=== PATIENT | female | born 1975 | race Caucasian/White ===

== ENCOUNTER 2021-10-12 19:10 | Emergency (ER) | payer OTHER ==
[2021-10-12 19:30] VITALS: O2SAT 100
--- NOTE | 2021-10-12 19:42 | ERPHSYRPT ---
- History of Present Illness Time Seen by Provider: 10/12/21 19:16 Source: patient Exam Limitations: no limitations Patient Subjective Stated Complaint: Cough Triage Nursing Assessment: Patient brought into ED via EMS and transferred self to bed. Patient A+O X3. Patient's skin pink, warm and dry. Patient complains of cough, fever, SOB, bodyaches, headaches and diarrhea for one week. Patient was seen by PCP yesterday and prescribed a Z [place]. Lungs clear a/p z[place]ira. Patient complains of productive intermittent cough with thick yellow/[place]ort[place] sputum. P atient complains of body aches. Physician History: 46 years old with history of tobacco abuse presented in the ER with chief complaint of cough gradually worsening for the last 2 to 3 days productive of yellow-green sputum with associated fever and chills. She is having coughing bouts and complaining of bilateral lower chest pain with coughing. She was seen outpatient and currently on Z-[place] which help with the fever but still having cough and some shortness of breath with generalized weakness fatigue, body aches, sinus congestion and headache. Unvaccinated against COVID-19. Timing/Duration: day(s) (2), gradual onset, worse Cough Quality/Degree: moderate, productive cough, sputum Possible Cause: unknown cause Modifying Factors: Worsens With: coughing Associated Symptoms: fever, chills, chest pain/soreness, cough, headache, muscle aches, nasal congestion, shortness of breath, sore throat Allergies/Adverse Reactions: chlorpheniramine [From Actifed Cold-Allergy] Allergy (Verified 10/12/21 19:17) phenylephrine [From Actifed Cold-Allergy] Allergy (Verified 10/12/21 19:17) pseudoephedrine [From Actifed Cold-Allergy] Allergy (Verified 10/12/21 19:17) triprolidine [From Actifed Cold-Allergy] Allergy (Verified 10/12/21 19:17) Immunizations Up to Date: Yes Travel Risk - International Travel Have you traveled outside of the country in past 3 weeks: No - Coronavirus Screening Symptoms: Fever, Cough: New Onset, Shortness of Breath, Vomiting/Diarrhea, Headaches/Body Aches/Fatigue Close contact with a COVID-19 positive Pt in past 14-21 Days: No - Vaccine Status Have you recieved a Covid-19 vaccination: No - Review of Systems Constitutional: Fever, Fatigue, Weakness Eyes: No Symptoms Ears, Nose, & Throat: Nose Congestion, Throat Swelling Respiratory: Cough, Dyspnea Cardiac: Chest Pain Abdominal/Gastrointestinal: No Symptoms Genitourinary Symptoms: No Symptoms Musculoskeletal: Myalgias Skin: No Symptoms Neurological: Headache Psychological: No Symptoms Endocrine: No Symptoms Hematologic/Lymphatic: No Symptoms Immunological/Allergic: No Symptoms - Past Medical History Pertinent Past Medical History: Yes Neurological History: No Pertinent History ENT History: No Pertinent History Cardiac History: No Pertinent History Respiratory History: Asthma Endocrine Medical History: No Pertinent History Musculoskeletal History: No Pertinent History GI Medical History: No Pertinent History History: No Pertinent History Psycho-Social History: No Pertinent History Female Reproductive Disorders: No Pertinent History - Past Surgical History Past Surgical History: Yes Neuro Surgical History: No Pertinent History Cardiac: No Pertinent History Respiratory: No Pertinent History Gastrointestinal: Cholecystectomy Genitourinary: No Pertinent History Musculoskeletal: No Pertinent History Female Surgical History: Section Other Surgical History: lap band - Social History Smoking Status: Current every day smoker How long have you smoked: years Exposure to second hand smoke: No Drug Use: none Patient Lives Alone: No - Female History Hx Now: No - Nursing Vital Signs Nursing Vital Signs: Initial Vital Signs Temperature 98.1 F 10/12/21 19:19 Pulse Rate 91 H 10/12/21 19:19 Respiratory Rate 18 10/12/21 19:19 Blood Pressure 114/62 10/12/21 19:19 O2 Sat by Pulse Oximetry 100 10/12/21 19:19 Pain Scale Pain Intensity 0 - Physical Exam General Appearance: no apparent distress, alert Eye Exam: PERRL/EOMI, eyes nml inspection Ears, Nose, Throat Exam: moist mucous membranes, pharyngeal erythema Neck Exam: normal inspection Respiratory Exam: normal breath sounds, lungs clear Cardiovascular Exam: regular rate/rhythm, normal heart sounds Gastrointestinal/Abdomen Exam: soft, No tenderness Back Exam: normal inspection, normal range of motion Extremity Exam: normal inspection, normal range of motion Neurologic Exam: alert, oriented x 3, cooperative Skin Exam: normal color SpO2 Interpretation: normal SpO2: 100 O2 Delivery: Room Air Ordered Tests: Active Orders 24 hr Category Date Time Status CHEST 1 VIEW (PORTABLE) Stat Exams 10/12/21 19:38 Taken BLOOD CULTURE Stat Lab 10/12/21 20:45 Received CBC W DIFF Stat Lab 10/12/21 20:45 Completed CMP Stat Lab 10/12/21 20:45 Completed INFLUENZA A+B CANDE Stat Lab 10/12/21 20:45 Completed Medication Summary Discontinued Medications Generic Name Dose Route Start Last Admin Trade Name Cesar PRN Reason Stop Dose Admin Acetaminophen 975 mg 10/12/21 19:39 10/12/21 20:00 Acetaminophen 325 Mg Tablet PO 10/12/21 19:40 975 mg STAT STA Administration Acetaminophen Confirm 10/12/21 19:57 Acetaminophen 325 Mg Tablet Administered 10/12/21 19:58 Dose 975 mg .ROUTE .[place] Lab/Rad Data: Laboratory Result Diagrams 10/12/21 20:45 10/12/21 20:45 Laboratory Results 10/12/21 10/12/21 10/12/21 Range/Units 20:45 20:45 20:45 WBC 8.2 (4.0-10.5) K/mm3 RBC 4.18 (4.1-5.4) M/mm3 Hgb 12.0 (12.0-16.0) gm/dl Hct 37.4 (35-47) % MCV 89.5 (78-100) fl MCH 28.7 (26-32) pg MCHC 32.1 (32-36) g/dl RDW 12.8 (11.5-14.0) % Plt Count 312 (150-450) K/mm3 MPV 9.4 (7.5-11.0) fl Gran % 64.7 (36.0-66.0) % Eos # (Auto) 0.12 (0-0.5) Absolute Lymphs (auto) 2.01 (1.0-4.6) Absolute Monos (auto) 0.76 (0.0-1.3) Lymphocytes % 24.4 (24.0-44.0) % Monocytes % 9.2 (0.0-12.0) % Eosinophils % 1.5 (0.00-5.0) % Basophils % 0.2 (0.0-0.4) % Absolute Granulocytes 5.32 (1.4-6.9) Basophils # 0.02 (0-0.4) Sodium 138 (137-145) mmol/L Potassium 3.8 (3.5-5.1) mmol/L Chloride 106 (98-107) mmol/L Carbon Dioxide 25 (22-30) mmol/L Anion Gap 11.2 (5-15) MEQ/L BUN 8 (7-17) mg/dL Creatinine 0.72 (0.52-1.04) mg/dL Estimated GFR > 60.0 ML/MIN Glucose 91 (74-106) mg/dL Calcium 8.3 L (8.4-10.2) mg/dL Total Bilirubin 0.20 (0.2-1.3) mg/dL AST 17 (14-36) U/L ALT 13 (0-35) U/L Alkaline Phosphatase 75 (38-126) U/L Serum Total Protein 6.7 (6.3-8.2) g/dL Albumin 3.7 (3.5-5.0) g/dL Influenza Type A Ag NEGATIVE (NEGATIVE) Influenza Type B Ag NEGATIVE (NEGATIVE) - Progress Progress: re-examined Air Movement: good Progress Note: 10/12/21 21:59 46 years old is evaluated for worsening cough and fever with some shortness of breath. Patient has minimal wheezing, given steroids and Tylenol, on reevaluation feeling better. Chest x-ray reviewed by me did not reveal any obvious infiltrative process. Has normal white count, grossly unremarkable chemistries. This could be viral bronchitis and will give a short course of steroids along with inhaler to use. Since she is already on Zithromax, recommended completing course and outpatient follow-up. She is maintaining oxygen saturation around 99% on room air and is not in any distress, do not think needs any other work-up and seems to be infectious etiology probably viral. Discussed signs symptoms of worsening needing return to ER which she seems understanding. Stable for discharge. 10/12/21 22:00 Antibiotics given: No Counseled pt/family regarding: lab results, diagnosis, need for follow-up, rad results, smoking cessation - Departure Departure Disposition: Home Clinical Impression: Acute bronchitis Condition: Stable Critical Care Time: No Referrals: DOCTOR,NO FAMILY [Primary Care Provider] - Follow up/PCP as directed MICHELINE MCGUIRE [ACTIVE STAFF] - Follow up/PCP as directed (In 2 days for reevaluation) Instructions: Cough, Adult (DC) Additional Instructions: Finish course of antibiotics. Use inhaler as needed. Follow-up with primary care for reevaluation. Return to ER for worsening cough/shortness of breath, persistent high-grade fever chills etc. Prescriptions: Prednisone 20 mg [Deltasone 20 mg] 60 mg PO DAILY 5 Days #15 tablet Albuterol 8 gm Mdi Hfa [Ventolin Hfa MDI] 8 gm IH Q4H #1 inh
[2021-10-12] MEDS ORDERED: TYLENOL 325 MG ONE (19:57)
[2021-10-12] MEDS: TYLENOL 325 MG PO STA (20:00)
[2021-10-12 20:55] LABS: Absolute Neutrophil Ct (ANC) 5.32 (1.4-6.9); BASOPHIL % 0.2 % (0.0-0.4); Basophil (Absolute #) 0.02 (0-0.4); Eosinophil % 1.5 % (0.00-5.0); Eosinophil (Absolute #) 0.12 (0-0.5); Hematocrit 37.4 % (35-47); Lymphocyte (Absolute #) 2.01 (1.0-4.6); Lymphocytes % 24.4 % (24.0-44.0); Mean Cell Volume 89.5 fl (78-100); Mean Corpuscular Hemoglobin 28.7 pg (26-32); Mean Corpuscular Hgb Concent. 32.1 g/dl (32-36); Mean Platelet Volume 9.4 fl (7.5-11.0); Monocyte (Absolute #) 0.76 (0.0-1.3); Monocytes % 9.2 % (0.0-12.0); Neutrophil % 64.7 % (36.0-66.0); Platelet Count 312 K/mm3 (150-450); Red Blood Count 4.18 M/mm3 (4.1-5.4); Red Cell Distribution Width 12.8 % (11.5-14.0); White Blood Count 8.2 K/mm3 (4.0-10.5)
[2021-10-12 21:14] LABS: ALBUMIN 3.7 g/dL (3.5-5.0); ALKALINE PHOSPHATASE 75 U/L (38-126); ANION GAP 11.2 MEQ/L (5-15); BLOOD UREA NITROGEN 8 mg/dL (7-17); CHLORIDE 106 mmol/L (98-107); Calcium 8.3 mg/dL (8.4-10.2); Carbon Dioxide 25 mmol/L (22-30); Creatinine 1 0.72 mg/dL (0.52-1.04); EST GLOMERULAR FILTRATION RATE > 60.0 ML/MIN; Glucose 91 mg/dL (74-106); Potassium 3.8 mmol/L (3.5-5.1); SGOT/AST 17 U/L (14-36); SGPT/ALT 13 U/L (0-35); SODIUM 138 mmol/L (137-145); Total Protein 6.7 g/dL (6.3-8.2)
[2021-10-12 21:23] LABS: INFLUENZA A NEGATIVE (NEGATIVE); INFLUENZA B NEGATIVE (NEGATIVE)
[2021-10-12] MEDS ORDERED: DELTASONE 20 MG ONE (22:02)
[2021-10-12] MEDS: DELTASONE 20 MG PO ONE (22:03)
[2021-10-12 22:05] VITALS: BP 125/64; PULSE 91
--- NOTE | 2021-10-13 08:59 | XRAY ---
Indication: Cough. Comparison: None Portable apical lordotic chest demonstrates normal heart and lungs. Bony thorax intact with mild degenerative changes throughout the spine.
== END 2021-10-12 22:22 | disposition home or self-care (01) ==
LOC: ED 19:10
DX: J20.9 Acute bronchitis, unspecified (principal); Z72.0 Tobacco use; R50.9 Fever, unspecified; R07.9 Chest pain, unspecified; Z79.52 Long term (current) use of systemic steroids
CPT/HCPCS: 36415; 71045; 80053; 85025; 87040; 87400; 99284; U0003; A9270-GY

== ENCOUNTER 2024-06-19 12:24 | Emergency (ER) | payer OTHER ==
[2024-06-19 12:57] VITALS: TEMP 98.1
--- NOTE | 2024-06-19 12:57 | ERPHSYRPT ---
- History of Present Illness Time Seen by Provider: 06/19/24 12:39 Source: patient Exam Limitations: no limitations Physician History: Left flank pain. 3 days. Patient diagnosed with UTI at outside hospital. Patient is here for a second opinion. No falls no trauma no fever. Patient does have some low blood pressures here. However she does have a history of of congestive heart failure. No active chest pain. Patient states that she was placed on antibiotic, does not remember which 1. We will follow-up in our records to see this. Patient otherwise asymptomatic, no shortness of breath, mentating well despite low blood pressure. Allergies/Adverse Reactions: chlorpheniramine [From Actifed Cold-Allergy] Allergy (Verified 06/19/24 12:48) Latex, Natural Rubber Allergy (Verified 06/19/24 12:48) phenylephrine [From Actifed Cold-Allergy] Allergy (Verified 06/19/24 12:48) pseudoephedrine [From Actifed Cold-Allergy] Allergy (Verified 06/19/24 12:48) triprolidine [From Actifed Cold-Allergy] Allergy (Verified 06/19/24 12:48) Home Medications: ALPRAZolam [Alprazolam] 0.5 mg PO DAILY PRN 06/19/24 [History] Apixaban [Eliquis] 5 mg PO BID 06/19/24 [History] Fluoxetine HCl 10 mg [Prozac 10 mg] 10 mg PO DAILY 06/19/24 [History] Nitrofurantoin Macro 100 mg [Macrobid 100MG Capsule] 100 mg PO BID 06/19/24 [History] OLANZapine [Olanzapine] 2.5 mg PO DAILY 06/19/24 [History] Sacubitril/Valsartan [Entresto 24 mg-26 mg Tablet] 1 tab PO BID 06/19/24 [History] Spironolactone 25 mg [Aldactone 25 MG] 25 mg PO DAILY 06/19/24 [History] Torsemide 20 mg [Demadex 20 mg] 20 mg PO TID 06/19/24 [History] carvediloL [Coreg] 25 mg PO BID 06/19/24 [History] - Past Medical History Pertinent Past Medical History: Yes Neurological History: No Pertinent History ENT History: No Pertinent History Cardiac History: No Pertinent History Respiratory History: Asthma Endocrine Medical History: No Pertinent History Musculoskeletal History: No Pertinent History GI Medical History: No Pertinent History History: No Pertinent History Psycho-Social History: No Pertinent History Female Reproductive Disorders: No Pertinent History - Past Surgical History Past Surgical History: Yes Neuro Surgical History: No Pertinent History Cardiac: No Pertinent History Respiratory: No Pertinent History Gastrointestinal: Cholecystectomy Genitourinary: No Pertinent History Musculoskeletal: No Pertinent History Female Surgical History: Section Other Surgical History: lap band - Female History Hx Now: No - Social History Smoking Status: Current every day smoker How long have you smoked: years Exposure to second hand smoke: No Drug Use: none Patient Lives Alone: No - Nursing Vital Signs Nursing Vital Signs: Initial Vital Signs Temperature 98.1 F 06/19/24 12:24 Pulse Rate 57 L 06/19/24 12:24 Respiratory Rate 15 06/19/24 12:24 Blood Pressure 96/65 06/19/24 12:24 O2 Sat by Pulse Oximetry 99 06/19/24 12:24 Pain Scale Pain Intensity 0 - Physical Exam Comments: 06/19/24 12:56 Review of Systems Constitutional: Negative for fever. HENT: Negative for congestion. Respiratory: Negative for shortness of breath. Cardiovascular: Negative for chest pain. Gastrointestinal: Negative for abdominal pain. Genitourinary: Negative for dysuria. Musculoskeletal: Negative for back pain. Skin: Negative for rash. Neurological: Negative for headaches. Psychiatric/Behavioral: Negative for behavioral problems. All other systems reviewed and are negative. Physical Exam Vitals signs and nursing note reviewed. Constitutional: Appearance: Patient is well-developed. HENT: Head: Normocephalic and atraumatic. Eyes: Conjunctiva/sclera: Conjunctivae normal. Neck: Musculoskeletal: Normal range of motion. Trachea: No tracheal deviation. Cardiovascular: Rate and Rhythm: Normal rate. Pulmonary: Effort: Pulmonary effort is normal. No respiratory distress. Abdominal: Palpations: Abdomen is soft. Left flank pain on palpation. Musculoskeletal: General: No deformity. Skin: General: Skin is warm and dry. Neurological/ Psychiatric: Mental Status: Mental status, behavior, interaction with environment is appropriate for patient's age and condition - Course Nursing assessment & vital signs reviewed: Yes EKG Interpreted by Me: Sinus Rhythm Ordered Tests: Active Orders 24 hr Category Date Time Status EKG-ER Only STAT Care 06/19/24 12:46 Active IV Insertion STAT Care 06/19/24 12:46 Active ABDOMEN AND PELVIS W&WO CONTRA [CT] Stat Exams 06/19/24 12:47 Completed CHEST 1 VIEW (PORTABLE) Stat Exams 06/19/24 12:46 Completed CBC W DIFF Stat Lab 06/19/24 13:15 Completed CMP Stat Lab 06/19/24 13:15 Completed LIPASE Stat Lab 06/19/24 13:15 Completed TROPONIN Q4H Lab 06/19/24 13:15 Completed TROPONIN Q4H Lab 06/19/24 17:00 Ordered TROPONIN Q4H Lab 06/19/24 21:00 Ordered UA W/RFX UR CULTURE Stat Lab 06/19/24 13:13 Completed Medication Summary Discontinued Medications Generic Name Dose Route Start Last Admin Trade Name Freq PRN Reason Stop Dose Admin Acetaminophen 975 mg 06/19/24 12:46 06/19/24 13:25 Acetaminophen 325 Mg Tablet PO 06/19/24 12:47 975 mg STAT ONE Administration Acetaminophen Confirm 06/19/24 13:23 Acetaminophen 325 Mg Tablet Administered 06/19/24 13:24 Dose 975 mg .ROUTE .STK-MED ONE Ketorolac Tromethamine 30 mg 06/19/24 12:46 06/19/24 13:26 Ketorolac Tromethamine 30 Mg/Ml Inj IV 06/19/24 12:47 30 mg STAT ONE Administration Ketorolac Tromethamine Confirm 06/19/24 13:23 Ketorolac Tromethamine 30 Mg/Ml Inj Administered 06/19/24 13:24 Dose 30 mg .ROUTE .STK-MED ONE Ondansetron HCl 4 mg 06/19/24 12:46 06/19/24 13:26 Ondansetron Hcl 4 Mg/2 Ml Vial IV 06/19/24 12:47 4 mg STAT ONE Administration Ondansetron HCl Confirm 06/19/24 13:23 Ondansetron Hcl 4 Mg/2 Ml Vial Administered 06/19/24 13:24 Dose 4 mg .ROUTE .STK-MED ONE Lab/Rad Data: Laboratory Result Diagrams 06/19/24 13:15 06/19/24 13:15 Laboratory Results 06/19/24 06/19/24 06/19/24 Range/Units 13:15 13:15 13:15 WBC 6.4 (3.98-10.04) x10^3/uL RBC 4.56 (3.93-5.22) x10^6/uL Hgb 12.9 (11.2-15.7) g/dL Hct 40.7 (34.1-44.9) % MCV 89.3 (79.4-94.8) fL MCH 28.3 (25.6-32.2) pg MCHC 31.7 L (32.2-35.5) g/dL RDW 14.4 (11.7-14.4) % Plt Count 298 (182-369) x10^3/uL MPV 9.7 (9.4-12.3) fL Gran % 69.5 (34.0-71.1) % Immature Gran % (Auto) 0.5 H (0.001-0.429) % Nucleat RBC Rel Count 0.0 (0.00-0.2) % Eos # (Auto) 0.15 (0.04-0.36) x10^3/uL Immature Gran # (Auto) 0.03 (0.001-0.031) x10^3u/L Absolute Lymphs (auto) 1.15 L (1.18-3.74) x10^3/uL Absolute Monos (auto) 0.57 (0.24-0.86) x10^3/uL Absolute Nucleated RBC 0.00 (0.00-0.012) x10^3u/L Lymphocytes % 18.0 L (19.3-51.7) % Monocytes % 8.9 (4.7-12.5) % Eosinophils % 2.3 (0.7-5.8) % Basophils % 0.8 (0.1-1.2) % Absolute Granulocytes 4.44 (1.56-6.13) x10^3/uL Basophils # 0.05 (0.01-0.08) x10^3/uL Sodium 136 (135-145) mmol/L Potassium 4.6 (3.5-5.1) mmol/L Chloride 102 (98-107) mmol/L Carbon Dioxide 28 (22-30) mmol/L Anion Gap 10.2 (5-15) MEQ/L BUN 24 H (7-17) mg/dL Creatinine 1.16 H (0.52-1.04) mg/dL Estimated GFR 58.5 ML/MIN Glucose 109 H (74-106) mg/dL Calcium 8.8 (8.4-10.2) mg/dL Total Bilirubin 0.30 (0.2-1.3) mg/dL AST 27 (14-36) U/L ALT 20 (0-35) U/L Alkaline Phosphatase 66 (38-126) U/L Troponin I < 0.012 (0.000-0.033) ng/mL Serum Total Protein 7.0 (6.3-8.2) g/dL Albumin 3.9 (3.5-5.0) g/dL Lipase 129 (23-300) U/L Urine Color (Yellow) Urine Appearance (Clear) Urine pH (4.6-8.0) Ur Specific Trade (1.005-1.030) Urine Protein (Negative) Urine Glucose (UA) (Negative) mg/dL Urine Ketones (Negative) Urine Blood (Negative) Urine Nitrite (Negative) Urine Bilirubin (Negative) Urine Urobilinogen (0.2) mg/dL Ur Leukocyte Esterase (Negative) U Hyaline Cast (Auto) (0-2) /LPF Urine Microscopic RBC (0-5) /HPF Urine Microscopic WBC (0-5) /HPF Ur Epithelial Cells (None Seen) /HPF Urine Bacteria (None Seen) /HPF Urine Culture Reflexed (NO) 06/19/24 Range/Units 13:13 WBC (3.98-10.04) x10^3/uL RBC (3.93-5.22) x10^6/uL Hgb (11.2-15.7) g/dL Hct (34.1-44.9) % MCV (79.4-94.8) fL MCH (25.6-32.2) pg MCHC (32.2-35.5) g/dL RDW (11.7-14.4) % Plt Count (182-369) x10^3/uL MPV (9.4-12.3) fL Gran % (34.0-71.1) % Immature Gran % (Auto) (0.001-0.429) % Nucleat RBC Rel Count (0.00-0.2) % Eos # (Auto) (0.04-0.36) x10^3/uL Immature Gran # (Auto) (0.001-0.031) x10^3u/L Absolute Lymphs (auto) (1.18-3.74) x10^3/uL Absolute Monos (auto) (0.24-0.86) x10^3/uL Absolute Nucleated RBC (0.00-0.012) x10^3u/L Lymphocytes % (19.3-51.7) % Monocytes % (4.7-12.5) % Eosinophils % (0.7-5.8) % Basophils % (0.1-1.2) % Absolute Granulocytes (1.56-6.13) x10^3/uL Basophils # (0.01-0.08) x10^3/uL Sodium (135-145) mmol/L Potassium (3.5-5.1) mmol/L Chloride (98-107) mmol/L Carbon Dioxide (22-30) mmol/L Anion Gap (5-15) MEQ/L BUN (7-17) mg/dL Creatinine (0.52-1.04) mg/dL Estimated GFR ML/MIN Glucose (74-106) mg/dL Calcium (8.4-10.2) mg/dL Total Bilirubin (0.2-1.3) mg/dL AST (14-36) U/L ALT (0-35) U/L Alkaline Phosphatase (38-126) U/L Troponin I (0.000-0.033) ng/mL Serum Total Protein (6.3-8.2) g/dL Albumin (3.5-5.0) g/dL Lipase (23-300) U/L Urine Color Yellow (Yellow) Urine Appearance Clear (Clear) Urine pH 6.0 (4.6-8.0) Ur Specific Trade 1.020 (1.005-1.030) Urine Protein Negative (Negative) Urine Glucose (UA) Negative (Negative) mg/dL Urine Ketones Negative (Negative) Urine Blood Negative (Negative) Urine Nitrite Negative (Negative) Urine Bilirubin Negative (Negative) Urine Urobilinogen 1.0 A (0.2) mg/dL Ur Leukocyte Esterase Moderate A (Negative) U Hyaline Cast (Auto) NONE SEEN (0-2) /LPF Urine Microscopic RBC 0-2 (0-5) /HPF Urine Microscopic WBC 6-10 A (0-5) /HPF Ur Epithelial Cells Few (None Seen) /HPF Urine Bacteria None Seen (None Seen) /HPF Urine Culture Reflexed NO (NO) - Progress Progress: improved Progress Note: 06/19/24 12:56 Differential diagnosis includes kidney stone, compression fracture, infection, UTI, triple AAA - basic labs including: CBC, lipase, CMP, UA - insert IV for symptom management - consider imaging: CT ab/pelvis or U/S We also obtained an EKG, chest x-ray, troponin to ensure that there is no cardiac cause for her symptoms today. 06/19/24 15:10 The patient although initially hypotensive did improve here last blood pressure was 111/66. They attribute initial low blood pressure to patient taking blood pressure medication right before coming to the emergency department. EKG although has lots of artifact no obvious ST changes, STEMI. Other labs do appear to show an improving UTI based on previous symptoms at [facility]. We did recommend that patient continues to take her antibiotics as prescribed. CT of the abdomen did not show any acute abnormalities. Chest x-ray did show cardiomegaly without obvious secondary CHF issues. Patient does have a known history of CHF. Patient does have close PCP follow-up already scheduled next week. I would like to continue to workup here to ensure patient's blood pressure stays elevated, repeat troponins, continued close monitoring, possible change in antibiotic. However, when I went to reassess the patient I was told that the patient's daughter's daughter (patient's granddaughter), had tragically at [place] while in the patient was in emergency department here today. Given this I did discuss the risks and benefits of leaving the emergency department to travel to [place]. I did recommend continued observation in the emergency department, possible admission to the hospital based on continued results and close monitoring. However, patient was adamant that she needed to leave. I do understand the patient's predicament. Again, risks and benefits were explained including , other serious morbidity. Patient still elected to leave at this point in time. She does understand that she can return here at any point in time for continued workup. Should she have any new, worsening symptoms, she should return immediately to the closest emergency department. Counseled pt/family regarding: lab results, diagnosis, need for follow-up, rad results - Departure Departure Disposition: Home Clinical Impression: Left flank pain Condition: Stable Critical Care Time: No Referrals: FAY ROBIN NP [Primary Care Provider] - Follow up/PCP as directed Instructions: Flank Pain
[2024-06-19 13:23] LABS: Absolute Neutrophil Ct (ANC) 4.44 x10^3/uL (1.56-6.13); BASOPHIL % 0.8 % (0.1-1.2); Basophil (Absolute #) 0.05 x10^3/uL (0.01-0.08); Eosinophil % 2.3 % (0.7-5.8); Eosinophil (Absolute #) 0.15 x10^3/uL (0.04-0.36); Hematocrit 40.7 % (34.1-44.9); Hemoglobin 12.9 g/dL (11.2-15.7); IMMATURE GRAN # 0.03 x10^3u/L (0.001-0.031); IMMATURE GRAN % 0.5 % (0.001-0.429); Lymphocyte (Absolute #) 1.15 x10^3/uL (1.18-3.74); Mean Cell Volume 89.3 fL (79.4-94.8); Mean Corpuscular Hemoglobin 28.3 pg (25.6-32.2); Mean Corpuscular Hgb Concent. 31.7 g/dL (32.2-35.5); Mean Platelet Volume 9.7 fL (9.4-12.3); Monocyte (Absolute #) 0.57 x10^3/uL (0.24-0.86); Monocytes % 8.9 % (4.7-12.5); Neutrophil % 69.5 % (34.0-71.1); Platelet Count 298 x10^3/uL (182-369); Red Blood Count 4.56 x10^6/uL (3.93-5.22); Red Cell Distribution Width 14.4 % (11.7-14.4); White Blood Count 6.4 x10^3/uL (3.98-10.04)
[2024-06-19] MEDS ORDERED: Zofran 4 MG/2 ML VIAL ONE (13:23)
[2024-06-19] MEDS ORDERED: TORAdol 30 mg Injection ONE (13:23)
[2024-06-19] MEDS ORDERED: TYLENOL 325 MG ONE (13:23)
[2024-06-19] MEDS: TYLENOL 325 MG PO ONE (13:25)
[2024-06-19] MEDS: Zofran 4 MG/2 ML VIAL IV ONE (13:26)
[2024-06-19] MEDS: TORAdol 30 mg Injection IV ONE (13:26)
[2024-06-19 13:28] LABS: Appearance Clear (Clear); Bacteria None Seen /HPF (None Seen); Bilirubin Negative (Negative); Blood Negative (Negative); Epithelial Cells Few /HPF (None Seen); Glucose, Urine Negative (Negative); Hyaline Casts NONE SEEN /LPF (0-2); Ketones Negative (Negative); Leukocyte Esterase Moderate (Negative); Nitrite Negative (Negative); Protein,Urine Dip Negative (Negative); RBC 0-2 /HPF (0-5)
[2024-06-19 13:31] LABS: ADD URINE CULTURE? NO (NO)
[2024-06-19 13:40] LABS: ALBUMIN 3.9 g/dL (3.5-5.0); ANION GAP 10.2 MEQ/L (5-15); BILIRUBIN,TOTAL 0.3 mg/dL (0.2-1.3); Calcium 8.8 mg/dL (8.4-10.2); Creatinine 1 1.16 mg/dL (0.52-1.04); EST GLOMERULAR FILTRATION RATE 58.5 ML/MIN; Potassium 4.6 mmol/L (3.5-5.1)
--- NOTE | 2024-06-19 14:52 | XRAY ---
Indication: Left flank. Multiple contiguous axial images obtained through the abdomen and pelvis prior to and following 80 cc Isovue 370 contrast as ordered. Comparison: None Lung bases clear. There is cardiomegaly. Previous bariatric surgery with intact gastric band, catheter, and reservoir. Noncontrasted demonstrates tiny splenic calcified granulomas. No other visceral calcifications/calculi. Noncontrasted stomach and bowel loops appear nonobstructed. Appendix not visualized. Mild scattered colonic diverticulosis without diverticulitis. Mild diffuse scattered colonic fecal debris including rectum. Previous cholecystectomy. No free fluid/air. Postcontrast images demonstrates normal visceral enhancement and renal excretion. Remaining liver, pancreas, spleen, adrenal glands, kidneys, ureters, bladder, uterus, and aorta are normal in CT appearance and attenuation. No pathologic retroperitoneal lymphadenopathy. Osseous structures intact with minimal/mild degenerative changes throughout spine. No ventral or inguinal hernias. Impression: 1. Cardiomegaly, colonic diverticulosis, diffuse fecal stasis, degenerative spondylosis, and previous bariatric surgery. 2. Remaining CT abdomen/pelvis with and without contrast exam is negative.
--- NOTE | 2024-06-19 14:54 | XRAY ---
Indication: Chest pain. Comparison: October 12, 2021 Portable chest now demonstrates cardiomegaly. Lungs inflated and clear. Bony thorax intact again with mild degenerative changes. Limited upper abdomen again demonstrates bariatric gastric band and catheter. Impression: New cardiomegaly. Negative for acute pneumonic process or CHF.
[2024-06-19 15:10] VITALS: BP 111/66; PULSE 60; RESP 18; O2SAT 97
== END 2024-06-19 15:10 | disposition home or self-care (01) ==
LOC: ED 12:24
DX: R10.9 Unspecified abdominal pain (principal); Z79.01 Long term (current) use of anticoagulants; Z79.899 Other long term (current) drug therapy; Z72.0 Tobacco use
CPT/HCPCS: 36000; 36415; 71045; 74178; 80053; 81001; 83690; 84484; 85025; 93005; 96374; 96375; 99284; J1885; J2405; A9270-GY